=== PATIENT | female | born 1975 | race Caucasian/White ===

== ENCOUNTER 2023-12-09 10:57 | Emergency (ER) | payer BC ==
[~2023-12-09] VITALS: Ht 162.6 cm; Wt 86.2 kg
[~2023-12-09 10:57] MED LIST: B-121000 MC2; D3-5000125 MCG; EMGALITY P120 MG/1 M; OMEPRAZOLE40 MG PO; POTASSIUM99 M1; PROVENTIL HFA6.7 GM INH; WEGOVY0.5 MG/0.5; WELLBUTRIN XL150 MG PO
[2023-12-09 11:06] VITALS: TEMP 98.5
[2023-12-09] MEDS: KETOROLAC TROMETHAMINE 30 MG/ML VIAL IV ONE (12:41)
[2023-12-09] MEDS: SODIUM CHLORIDE 0.9% 1000ML 1,000 ML IV ONE (12:41)
[2023-12-09 13:34] LABS: CLARITY,URINE CLEAR (CLEAR); COLOR,URINE YELLOW (YELLOW); GLUCOSE, URINE NEGATIVE (NEGATIVE); KETONES,URINE TRACE (NEGATIVE); LEUKOCYTE ESTERASE ,URINE NEGATIVE (NEGATIVE); NITRITE,URINE NEGATIVE (NEGATIVE); PH,URINE 6 (5 - 7); PROTEIN,URINE DIPSTICK NEGATIVE (NEGATIVE)
[2023-12-09 13:35] LABS: BILIRUBIN,URINE NEGATIVE (NEGATIVE); URINE UROBILINOGEN 0.2 mg/dL (0.2 - 1)
[2023-12-09 14:20] LABS: BACTERIA,URINE FEW /HPF; EPITHELIAL CELLS,URINE MODERATE /LPF
[2023-12-09 14:34] VITALS: PULSE 84; RESP 16
[2023-12-09 14:46] VITALS: BP 124/75; PULSE 87; RESP 16; O2SAT 97
== END 2023-12-09 14:45 | disposition home or self-care (01) ==
LOC: ER 11:08
DX: R30.0 Dysuria (principal); R31.9 Hematuria, unspecified; R10.30 Lower abdominal pain, unspecified; K21.9 Gastro-esophageal reflux disease without esophagitis; F41.9 Anxiety disorder, unspecified
CPT/HCPCS: 74176; 81001; 87086; 99283; J1885; J7030